=== PATIENT | male | born 1940 | race Caucasian/White ===

== ENCOUNTER 2022-10-03 11:08 | Emergency (ER) | payer MEDICARE, BC, OTHER ==
--- NOTE | 2022-10-03 12:14 | XR ---
EXAMINATION TYPE: XR tibia fibula LT DATE OF EXAM: 10/03/2022 COMPARISON: NONE HISTORY: Pain TECHNIQUE: Two views are submitted. FINDINGS: The osseous structures are intact. The joint spaces are preserved. Calcaneal spurs are seen. There is mild arthropathy tricompartment joint space. Remote tibial tubercle injury seen. The vascular calc ium lesions. No destructive changes. IMPRESSION: 1. Mild diffuse osteopenia and arthropathy. 2. Calcaneal spurs. 3. Remote tibial tubercle avulsion fracture\Catracho Schlatter disease.
--- NOTE | 2022-10-03 12:54 | ED ---
Extremity Problem HPI - General Chief complaint: Extremity Problem,Nontraumatic Stated complaint: lt leg pain Time Seen by Provider: 10/03/22 11:30 Source: patient, RN notes reviewed Mode of arrival: ambulatory Limitations: no limitations - History of Present Illness Initial comments: 82-year-old male presents emergency department tingling left leg pain. Patient states he had an area of cancer removed from his left leg he states that it was sutured states he is feeling better now is growing back. He states he has pain at the site has a follow-up with dermatology in 9 days. Patient is concerned about possible bony issue. Patient denies any other complaints. - Related Data Allergies Allergy/AdvReac Type Severity Reaction Status Date / Time No Known Allergies Allergy Verified 10/03/22 11:15 Review of Systems ROS Statement: Those systems with pertinent positive or pertinent negative responses have been documented in the HPI. ROS Other: All systems not noted in ROS Statement are negative. Past Medical History Past Medical History: Chest Pain / Angina Additional Past Medical History / Comment(s): Covid History of Any Multi-Drug Resistant Organisms: None Reported Past Surgical History: Heart Catheterization With Stent Past Psychological History: No Psychological Hx Reported Smoking Status: Current every day smoker Past Alcohol Use History: Occasional Past Drug Use History: None Reported General Exam Limitations: no limitations General appearance: alert, in no apparent distress Head exam: Present: atraumatic, normocephalic, normal inspection Eye exam: Present: normal appearance, PERRL, EOMI. Absent: scleral icterus, conjunctival injection, periorbital swelling Respiratory exam: Present: normal lung sounds bilaterally. Absent: respiratory distress, wheezes, rales, rhonchi, stridor Cardiovascular Exam: Present: regular rate, normal rhythm, normal heart sounds. Absent: systolic murmur, diastolic murmur, rubs, gallop, clicks Extremities exam: Present: other (Left lower tib-fib there is small skin growth noted with discoloration, there is tender with palpation, ulcerative bilaterally.) Course Vital Signs 10/03/22 11:11 Temperature 98.4 F Pulse Rate 90 Respiratory 18 Rate Blood Pressure 135/82 O2 Sat by Pulse 99 Oximetry Medical Decision Making - Medical Decision Making Was pt. sent in by a medical professional or institution (, PA, RESUME SPECIALIST, urgent care, hospital, or group home...) When possible be specific @ -No Did you speak to anyone other than the patient for history (EMS, parent, family, police, friend...)? What history was obtained from this source @ -No Did you review nursing and triage notes (agree or disagree)? Why? @ -I reviewed and agree with nursing and triage notes Were old charts reviewed (outside hosp., previous admission, EMS record, old EKG, old radiological studies, urgent care reports/EKG's, group home records)? Report findings @ -No old charts were reviewed Differential Diagnosis (chest pain, altered mental status, abdominal pain women, abdominal pain men, vaginal bleeding, weakness, fever, dyspnea, syncope, headache, dizziness, GI bleed, back pain, seizure, CVA, palpatations, mental health, musculoskeletal)? @ -[Skin cancer, bone lesion, leg pain EKG interpreted by me (3pts min.). @ -None X-rays interpreted by me (1pt min.). @ -X-ray shows chronic changes there is no tenderness over proximal tib-fib region there is no significant changes in the lower tib-fib region CT interpreted by me (1pt min.). @ -None done U/S interpreted by me (1pt. min.). @ -None done What testing was considered but not performed or refused? (CT, X-rays, U/S, labs)? Why? @ -None What meds were considered but not given or refused? Why? @ -None Did you discuss the management of the patient with other professionals (professionals i.e. , PA, RESUME SPECIALIST, lab, RT, psych nurse, social media assistant, basket mender, teacher, money position officer, case fitter)? Give summary @ -No Was smoking cessation discussed for >3mins.? @ -No Was critical care preformed (if so, how long)? @ -No Were there social determinants of health that impacted care today? How? (Homelessness, low income, unemployed, alcoholism, drug addiction, transpor tation, low edu. Level, literacy, decrease access to med. care, intermediate, rehab)? @ -No Was there de-escalation of care discussed even if they declined (Discuss DNR or withdrawal of care, Hospice)? DNR status @ -No What co-morbidities impacted this encounter? (DM, HTN, Smoking, COPD, CAD, Cancer, CVA, ARF, Chemo, Hep., AIDS, mental health diagnosis, sleep apnea, morbid obesity)? @ -None Was patient admitted / discharged? Hospital course, mention meds given and route, prescriptions, significant lab abnormalities, going to OR and other pertinent info. @ -Discharged patient's x-rays negative for acute bony lesion an area of concern patient is follow-up with dermatology return parameters discussed. Undiagnosed new problem with uncertain prognosis? @ -No Drug Therapy requiring intensive monitoring for toxicity (Heparin, Nitro, Insulin, Cardizem)? @ -No Were any procedures done? @ -No Diagnosis/symptom? @ -Leg pain, history of skin cancer Acute, or Chronic, or Acute on Chronic? @ -Acute Uncomplicated (without systemic symptoms) or Complicated (systemic symptoms)? @ -Uncomplicated Side effects of treatment? @ -No Exacerbation, Progression, or Severe Exacerbation? @ -No Poses a threat to life or bodily function? How? (Chest pain, [place], [place], pneumonia, PE, COPD, DKA, ARF, appy, cholecystitis, CVA, Diverticulitis, Homicidal, Suicidal, threat to staff... and all critical care pts) @ -No Disposition Clinical Impression: Left leg pain, History of skin cancer Disposition: HOME SELF-CARE Condition: Stable Instructions (If sedation given, give patient instructions): Leg Pain (ED) Additional Instructions: Please return to the Emergency Department if symptoms worsen or any other concerns. Is patient prescribed a controlled substance at d/c from ED?: No Referrals: Nonstaff,Physician [Primary Care Provider] - 1-2 days Time of Disposition: 12:53
[2022-10-03 13:26] VITALS: BP 133/78; PULSE 82; RESP 16; TEMP 98.1
== END 2022-10-03 13:26 | disposition home or self-care (01) ==
LOC: EC 11:08
DX: M79.605 Pain in left leg (principal); M85.80 Other specified disorders of bone density and structure, unspecified site; Z85.828 Personal history of other malignant neoplasm of skin; F17.200 Nicotine dependence, unspecified, uncomplicated
CPT/HCPCS: 99283

== ENCOUNTER 2023-10-25 06:13 | Day surgery (SDC) | payer MEDICARE, BC ==
[2023-10-23 13:39] VITALS: BMI 32.5
[~2023-10-25 06:13] MED LIST: LIDOCAINE 1% (10MG/ML) FOR IV START INTRADERMA PRN
[2023-10-25] MEDS: IV FLUID CONTINUATION 1,000 ML IV ONE (06:42)
[2023-10-25] MEDS: LACTATED RINGERS 1,000 ML IV SCH (07:01)
[2023-10-25] MEDS: HYDROCORTISONE SUCCINATE 100 MG/2 ML VIAL IV STA (07:01)
[2023-10-25 07:05] VITALS: RESP 16; TEMP 97.3
[2023-10-25] MEDS ORDERED: fentaNYL (PF) 50 MCG/ML 2 ML AMP ONE (07:05)
[2023-10-25] MEDS ORDERED: PROPOFOL 10 MG/ML 20 ML VIAL IV ONE (07:05)
[2023-10-25 08:11] LABS: Anisocytosis Slight; HCT 33.9 % (39.0-53.0); HGB 11.9 gm/dL (13.0-17.5); MCH 35.7 pg (25.0-35.0); MCV 102.1 fL (80.0-100.0); Macrocytosis Moderate; Mean Platelet Volume 10.1; Poikilocytosis Slight; RBC 3.32 m/uL (4.30-5.90); RDW 19.3 % (11.5-15.5); Reticulocyte % 2.9 % (0.5-2.0); WBC 10.8 k/uL (3.8-10.6)
[2023-10-25 08:13] LABS: Platelet Count 42 k/uL (150-450)
--- NOTE | 2023-10-25 08:18 | OP ---
OPERATIVE REPORT DATE OF SERVICE : PREOPERATIVE DIAGNOSIS: Thrombocytopenia. POSTOPERATIVE DIAGNOSIS: Thrombocytopenia. OPERATION: Bone marrow biopsy with general and local sedation. DESCRIPTION OF PROCEDURE: Mr. Lozano was placed in the left lateral decubitus position with the right posterior iliac spine and then the right posterior iliac crest palpated following administration of general sedation. The right posterior iliac crest was sterilized with 3 swabs of Betadine, 3 swabs of alcohol followed by placement of a sterile drape. 10 mL of 1% lidocaine was then applied to the periosteum. A 0.3 cm incision into the subcutaneous tissue was made followed by advancement of a 4-inch Jamshidi needle into the bone marrow. 17 mL of aspirate was obtained. Initial attempt to obtain core sample was unsuccessful. Repeat attempt was also unsuccessful. On the third attempt, a 0.5 cm core sample was obtained. Mr. Lozano tolerated the procedure well with less than 1 mL of blood loss. He returned to the postoperative area in stable condition. Samples will be sent for morphology, flow cytometry, FISH, cytogenetics, and NGS. We will follow up on the results in clinic. MMODL / IJN: [id number] /
[2023-10-25 08:23] VITALS: BP 116/70; PULSE 70
[2023-10-25 08:35] LABS: Band Neutrophils % 3 %; Lymphocytes # (M) 2.38 k/uL (1.0-4.8); Metamyelocytes # (M) 0.43 k/uL (0); Metamyelocytes % 4 %; Monocytes # (M) 1.19 k/uL (0-1.0); Myelocytes # (M) 0.43 k/uL (0); Myelocytes % 4 %; Neutrophils % (M) 57 %; Nucleated Red Blood Cells 0 /100 WBC (0-0); Total Cells Counted 200
== END 2023-10-25 08:30 | disposition home or self-care (01) ==
LOC: OR 06:13
PROVIDERS: ATTEND Internal Medicine
DX: D69.6 Thrombocytopenia, unspecified (principal)
CPT/HCPCS: 85025; 85045; 38222; J1720; J3010; J2704